=== PATIENT | female | born 1975 | race Caucasian/White ===

== ENCOUNTER 2017-06-14 18:37 | Emergency (ER) | payer OTHER ==
[2017-06-14 20:47] VITALS: BP 114/61
[2017-06-14] MEDS ORDERED: Amoxicillin PO (*) 500 MG CAP PO ONE (21:04)
--- NOTE | 2017-06-14 21:07 | UC ---
Throat Pain/Nasal Tato HPI - HPI Summary HPI Summary: 41 yo female with moderate ST and GASPAR today son dxed with strep yesterday no n/v/d no cough or CP - History of Current Complaint Chief Complaint: UCGeneralIllness Stated Complaint: SORE THROAT,HEADACHE,CONGESTION Hx Obtained From: Patient Hx Last Menstrual Period: 01/2015 Onset/Duration: Gradual Onset, Lasting Days Severity: Mild Pain Intensity: 4 Pain Scale Used: 0-10 Numeric - Allergies/Home Medications Allergies/Adverse Reactions: Allergies Allergy/AdvReac Type Severity Reaction Status Date / Time MS Cefaclmiesha [From Ceclor] AdvReac Intermediate GI Upset Verified 06/14/17 20:47 PMH/Surg Hx/FS Hx/Imm Hx Previously Healthy: Yes - Surgical History Surgical History: None - Family History Known Family History: Positive: None - Social History Alcohol Use: None Substance Use Type: None Smoking Status (MU): Former Smoker Length of Time of Smoking/Using Tobacco: 2 yrs Review of Systems Constitutional: Negative Skin: Negative Eyes: Negative ENT: Sore Throat Respiratory: Negative Cardiovascular: Negative Gastrointestinal: Negative Genitourinary: Negative Motor: Negative Neurovascular: Negative Musculoskeletal: Negative Neurological: Headache Psychological: Negative Is Patient Immunocompromised?: No All Other Systems Reviewed And Are Negative: Yes Physical Exam Triage Information Reviewed: Yes Appearance: Well-Appearing, No Pain Distress, Well-Nourished Vital Signs: Initial Vital Signs Temp 97.8 F 06/14/17 20:40 Pulse 65 06/14/17 20:40 Resp 16 06/14/17 20:40 BP 114/61 06/14/17 20:40 Pulse Ox 99 06/14/17 20:40 Vital Signs Reviewed: Yes Eyes: Positive: Conjunctiva Clear ENT: Positive: Hearing grossly normal, Pharyngeal erythema, Uvula midline. Negative: Nasal congestion, Nasal drainage, Tonsillar swelling, Tonsillar exudate, Trismus, Muffled voice, Hoarse voice, Sinus tenderness Neck: Positive: Supple, Enlarged Nodes @ - ant cervical Respiratory: Positive: Lungs clear, Normal breath sounds, No respiratory distress, No accessory muscle use Cardiovascular: Positive: RRR, No Murmur Bowel Sounds: Positive: Present Musculoskeletal Exam: Normal Neurological Exam: Normal Neurological: Positive: Alert Psychological Exam: Normal Skin Exam: Normal Throat Pain/Nasal Course/Dx - Course Course Of Treatment: strep (-) - Differential Dx/Diagnosis Provider Diagnoses: acute pharyngitis Discharge - Discharge Plan Condition: Stable Disposition: HOME Prescriptions: Amoxicillin PO (*) [Amoxicillin 875 MG (*)] 875 mg PO BID #20 tab Patient Education Materials: Pharyngitis (ED) Referrals: Brandi Sanchez MD [Primary Care Provider] - 3 Days (if not better)
== END 2017-06-14 21:16 | disposition home or self-care (01) ==
LOC: UCCORT 18:37
DX: J02.9 Acute pharyngitis, unspecified (principal); Z87.891 Personal history of nicotine dependence
CPT/HCPCS: 87651; 99212; A9270-GY; G0463

== ENCOUNTER 2017-06-18 10:47 | Emergency (ER) | payer OTHER ==
--- NOTE | 2017-06-18 11:17 | UC ---
UC Dental HPI - HPI Summary HPI Summary: seen 3 days ago with sore throat, son had strep a few weeks ago--strep was negative but rx with amoxicillin---is not better but now has erythema sores on tongue and roof of mouth - History of Current Complaint Chief Complaint: UCDentalProblem Stated Complaint: ORAL COMPLAINT Time Seen by Provider: 06/18/17 11:09 Hx Obtained From: Patient Hx Last Menstrual Period: 01/2015 ?: No Onset/Duration: Sudden Onset, Worse Since - today Severity: Moderate Aggravating Factor(s): Chewing Alleviating Factor(s): Nothing - Allergies/Home Medications Allergies/Adverse Reactions: Allergies Allergy/AdvReac Type Severity Reaction Status Date / Time cefaclor Allergy Vomiting Verified 06/18/17 11:19 PMH/Surg Hx/FS Hx/Imm Hx Previously Healthy: No - multiple herniated discs GI/ History: Gastroesophageal Reflux - Surgical History Surgical History: None - Family History Known Family History: Positive: None - Social History Occupation: Employed Part-time Lives: With Family Alcohol Use: None Substance Use Type: None Smoking Status (MU): Former Smoker Length of Time of Smoking/Using Tobacco: 2 yrs Review of Systems Constitutional: Fatigue Skin: Other - tender erythemic sores roof of mouth and tongue Eyes: Negative ENT: Negative Respiratory: Negative Cardiovascular: Negative Gastrointestinal: Negative Genitourinary: Negative Motor: Negative Neurovascular: Negative Musculoskeletal: Negative Neurological: Negative Psychological: Negative Is Patient Immunocompromised?: No All Other Systems Reviewed And Are Negative: Yes Physical Exam Triage Information Reviewed: Yes Appearance: Well-Appearing, No Pain Distress, Well-Nourished Vital Signs Reviewed: Yes Eye Exam: Normal Eyes: Positive: Conjunctiva Clear ENT Exam: Normal ENT: Positive: Normal ENT inspection, Hearing grossly normal, Pharyngeal erythema, TMs normal, Uvula midline. Negative: Nasal congestion, Tonsillar swelling, Tonsillar exudate, Trismus, Muffled voice, Hoarse voice, Dental tenderness, Sinus tenderness Dental Exam: Normal Neck exam: Normal Neck: Positive: Supple, Nontender, No Lymphadenopathy Respiratory Exam: Normal Respiratory: Positive: No respiratory distress, No accessory muscle use Cardiovascular Exam: Normal Cardiovascular: Positive: Pulses Normal, Brisk Capillary Refill Musculoskeletal Exam: Normal Neurological Exam: Normal Neurological: Positive: Alert, Muscle Tone Normal, Fatigued Psychological Exam: Normal Skin: Positive: Other - on tongue and hard palate as noted Dental Complaint Course/Dx - Course Course Of Treatment: magic mouth wash, stop amoxicillin, tylenol, ibuprofen for pain follow with pcp - Differential Dx/Diagnosis Provider Diagnoses: viral stomatitis Discharge - Discharge Plan Condition: Stable Disposition: HOME Prescriptions: Magic Mouth Was-PRISCA/MAAL/LIDO* 5 ml SWISH SPIT QID #120 ml Patient Education Materials: Ibuprofen (By mouth), Gingivostomatitis (ED) Referrals: Brandi Sanchez MD [Primary Care Provider] - 1 Week
[2017-06-18 11:19] VITALS: BP 141/66
== END 2017-06-18 11:33 | disposition home or self-care (01) ==
LOC: UCCORT 10:47
DX: K12.1 Other forms of stomatitis (principal); B34.8 Other viral infections of unspecified site; Z88.1 Allergy status to other antibiotic agents; Z87.891 Personal history of nicotine dependence
CPT/HCPCS: 99212; G0463

== ENCOUNTER 2017-08-25 17:56 | Emergency (ER) | payer OTHER ==
[2017-08-25 18:17] VITALS: BP 144/77
--- NOTE | 2017-08-25 18:39 | UC ---
Dizzy HPI HPI Summary: 41 yo female flew to [place] about 10 days ago After flight developed mild intermittent vertigo/right otalgia and nausea with mild headache Has had these symptoms in past with flights She flew back to [place] on 08/21. Since then she has had intermittent severe HAs which travel from occiput to frontal she has had severe nausea no vomiting she has had trouble focusing and sees halos around objects she has had vertigo which is worse with change of positions she has experience disequilibrium as well with a sensation of being on a rocking boat she has marked right ear pain now no ringing or roaring in her ears seen by PMD yesterday and started on zofran/meclizine/as well as ciprodex ear drops took a nap around noon woke at three and vertigo was the worse she has experienced - History Of Current Complaint Chief Complaint: UCGeneralIllness Stated Complaint: WORSENING VERTIGO Time Seen by Provider: 08/25/17 18:20 Hx Obtained From: Patient Hx Last Menstrual Period: 08/16/17 Onset/Duration: Sudden Onset, Still Present Timing: Constant - initially intermittent and mild/now constant and severe Severity Initially: Mild Severity Currently: Severe Pain Intensity: 8 Pain Scale Used: 0-10 Numeric Character: Room Spinning, Dizzy Aggravating Factor(s): Position Change, Supine To Erect, Change In Head Position Alleviating Factor(s): Rest, Closing Eyes Associated Signs And Symptoms: Positive: Nausea, Visual Changes, Decreased Oral Intake. Negative: Vomiting, Diaphoresis, Tinnitus, Chest Pain, SOB, Palpitations, Change In Diet - Allergies/Home Medications Allergies/Adverse Reactions: Allergies Allergy/AdvReac Type Severity Reaction Status Date / Time cefaclor Allergy Vomiting Verified 06/18/17 11:19 Home Medications: Home Medications Ciproflox/Dexameth OTIC.SUSP* [Ciprodex OTIC.SUSP*] 1 drop .SEE ORDER DAILY 12/05 [History Confirmed 08/25/17] Meclizine TAB* [Antivert 12.5 TAB*] 12.5 mg PO TID 08/25/17 [History Confirmed 08/25/17] Ondansetron TAB* [Zofran 4 MG Tab*] 4 mg PO Q6H PRN 08/25/17 [History Confirmed 08/25/17] metFORMIN* [Glucophage 500 MG TAB *] 500 mg PO BID 08/25/17 [History Confirmed 08/25/17] PMH/Surg Hx/FS Hx/Imm Hx Previously Healthy: Yes Respiratory History: Asthma GI/ History: Gastroesophageal Reflux Psychological History: Anxiety - Surgical History Surgical History: None - Family History Known Family History: Positive: None - Social History Alcohol Use: None Substance Use Type: None Smoking Status (MU): Former Smoker Length of Time of Smoking/Using Tobacco: 2 yrs Review of Systems Constitutional: Negative Skin: Negative Eyes: Blurred Vision ENT: Negative Respiratory: Negative Cardiovascular: Negative Gastrointestinal: Nausea Genitourinary: Negative Motor: Negative Neurovascular: Negative Musculoskeletal: Negative Neurological: Headache Psychological: Negative Is Patient Immunocompromised?: No All Other Systems Reviewed And Are Negative: Yes Physical Exam Triage Information Reviewed: Yes Appearance: Well-Appearing, No Pain Distress, Well-Nourished Vital Signs: Initial Vital Signs Temp 98.9 F 08/25/17 18:11 Pulse 78 08/25/17 18:11 Resp 16 08/25/17 18:11 BP 144/77 08/25/17 18:11 Pulse Ox 100 08/25/17 18:11 Vital Signs Reviewed: Yes Eyes: Positive: Conjunctiva Clear, Other: - EOMI/PERRL/fundi benign ENT: Positive: Hearing grossly normal, Pharynx normal, TMs normal, Uvula midline , Other - right tragal tenderness but EAC does not appeat swollen. Negative: Nasal congestion, Nasal drainage, TM bulging, TM dull, TM red, Tonsillar swelling, Tonsillar exudate, Trismus, Muffled voice, Hoarse voice, Dental tenderness Neck: Positive: Supple, Nontender, No Lymphadenopathy, Other: - no bruits Respiratory: Positive: Lungs clear, Normal breath sounds, No respiratory distress, No accessory muscle use Cardiovascular: Positive: RRR, No Murmur. Negative: Tachycardia Musculoskeletal: Positive: Strength Intact, ROM Intact, No Edema Neurological: Positive: Alert, Other: - GCS 15/15, CN2-12 intact, strength 5/5, DTRs brisk and symmetrical, no dysarthria or aphasia, no pronator drift, gait slow and a bit wide based Psychological Exam: Normal Skin Exam: Normal Diagnostics - Radiology No standard instances Xray Interpretation: No Acute Changes - CT brain Radiology Interpretation Completed By: Radiologist Re-Evaluation - Re-Evaluation First Eval Re-Evaluation Time: 19:36 Change: Improved Dizzy Course/Dx - Course Course Of Treatment: I offerred IV fluids and IV lorazepam. Pt declines. She feels better knowing that her CT is normal and thinks anxiety caused some of her symptoms - Differential Dx/Diagnosis Provider Diagnoses: positional vertigo Discharge - Sign-Out/Discharge Documenting (check all that apply): Discharge/Admit/Transfer - Discharge Plan Condition: Stable Disposition: HOME Patient Education Materials: Vertigo (ED) Referrals: Brandi Sanchez MD [Primary Care Provider] - As Soon As Possible (recheck this week) Additional Instructions: continue current treatment recheck for new or worsening symptoms continue to not risk driving until you are better
--- NOTE | 2017-08-25 19:25 | RAD ---
Indication: Headache and vertigo. Comparison: No relevant prior exams available on the [facility] for [place]. Technique: Noncontrast CT vertex of skull through foramen magnum. Report: The sulci, ventricles, and basal cisterns are normal for age. Alas matter white matter differentiation is preserved without evidence for edema. No intra or extra axial hemorrhage, mass, or fluid collection detected. Unremarkable visualized orbital contents. Unremarkable calvarium and skull base. Unremarkable scalp. The visualized paranasal sinuses and mastoid air spaces are clear. IMPRESSION: Negative unenhanced head CT.
== END 2017-08-25 19:39 | disposition home or self-care (01) ==
LOC: UCCORT 17:56
DX: H81.10 Benign paroxysmal vertigo, unspecified ear (principal); Z87.891 Personal history of nicotine dependence; Z88.3 Allergy status to other anti-infective agents
CPT/HCPCS: 70450; 99211; G0463

== ENCOUNTER 2018-07-11 07:29 | Emergency (ER) | payer OTHER ==
--- OUTSIDE RECORDS SUMMARY | 2018-07-11 07:39 | XMS REPORT | Continuity of Care Document ---
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 [phone] Rheumatoid Factor Screen < 10.0 IU/mL N 0.0-15.0 Magnesium 2.3 mg/dL N 1.8-2.4 Thyroid Stim Hormone 2.06 uIU/mL N 0.30-4.20 PCOS 02/11/2011 [facility] Prolactin 7.4 ng/mL 3.24-29.12 [address] [place] [address] [phone] Insulin 75.4 uIU/mL High 2.6-24.9 55 Thyroid Stim Hormone 0.76 uIU/mL 0.49-4.67 Free T4 0.93 ng/dL 0.71-1.85 Testosterone,Serum 50 ng/dL High 8-48 56 Dehydroepiandrosterone Sulfate 143.7 g/dL 60.9-337.0 2 Hour GTT See Note mg/dL 57 HCG, Quant < 1.0 mIU/mL 58 Hydroxyprogesterone,17-Alpha 57 ng/dL . 59 LDL Cholesterol 02/11/2011 [facility] Cholesterol 166 mg/dL 120-200 Profile [address] [place] [address] [phone] Triglycerides 75 mg/dL 16-231 HDL Cholesterol 46 mg/dL 29-83 LDL-Cholesterol 105 mg/dL 62-185 Testosterone,Free/Weakly 02/11/2011 [facility] Testosterone,%Free/Weakly 8.0 3.0-18.[address] BND % [place] [address] [phone] Testosterone,Free+Weakly Bound 4.0 ng/dL 0.0-9.5 60 LDL Cholesterol 04/22/2010 [facility] Cholesterol 164 mg/dL 120-[address] [place], [place] [id number] [phone] Triglycerides 151 mg/dL 0-210 HDL Cholesterol 43 mg/dL 32-96 LDL-Cholesterol 91 mg/dL 62-185 Testosterone,Free/Weakly 04/22/2010 [facility] Testosterone,%Free/Weakly 8.6 3.0-18.[address] % [place], [place] [id number] [phone] Testosterone,Free+Weakly Bound 4.1 ng/dL 0.0-9.5 61 PCOS 04/22/2010 [facility] Prolactin 52.1 ng/mL High 3.24-29.[address] [place], [place] [id number] [phone] Insulin 17.4 uIU/mL 0.0-24.9 63 Thyroid Stim Hormone 2.65 uIU/mL 0.49-4.67 64 Free T4 1.00 ng/dL 0.71-1.85 65 Testosterone,Serum 48 ng/dL 8-48 66 Dehydroepiandrosterone Sulfate 170.3 g/dL 60.9-337.0 67 2 Hour GTT See Note mg/dL 68 HCG, Quant < 1.0 mIU/mL 69 Hydroxyprogesterone,17-Alpha 85 ng/dL . 70 Laboratory test 02/08/2010 [facility] ThinPrep Pap: See Note [address] [place] [address] [phone] 1 R73.9, E66.09, H81.10, E55.9 2 Elevated levels of HbA1c suggest the need for more aggressive treatment of glycemia. The [place] [employer] recommends that a primary goal of therapy should be a HbA1c of <7% and that physicians should re-evaluate the treatment regimen in patients with HbA1c values consistently >8%. 3 Note: Persistent reduction for 3 months or more in an eGFR <60 mL/min/1.73 m2 defines CKD. Patients with eGFR values >/=60 mL/min/1.73 m2 may also have CKD if evidence of persistent proteinuria is present. The original MDRD equation for estimated GFR is not valid for patients less than 18 years of age. Additional information may be found at www.kdoqi.org. 4 Vitamin D deficiency has been defined by the [employer] and an Endocrine Society practice guideline as a level of serum 25-OH vitamin D less than 20 ng/mL (1,2). The Endocrine Society went on to further define vitamin D insufficiency as a level between 21 and 29 ng/mL (2). 1. IOM ([employer] of [employer]). 2010. Dietary reference intakes for calcium and D. [place]: The National Academies Press. 2. Zeynep MF, Isabella SHAY, Amarilis GASPAR, et al. Evaluation, treatment, and prevention of vitamin D deficiency: an Endocrine Society clinical practice guideline. JCEM. 2010; 96(7):1911-30. Performed at: RN - [facility] [address] [id number] Quality Lab Technician: Shannan Bustillos MD, Phone: [phone] 5 Reference Guidelines*: Desirable: ........... < 200 mg/dL Borderline High: ..... 200-239 mg/dL High: ................ >=240 mg/dL * The National Cholesterol Education Program (NCEP) 6 Reference Guidelines*: Normal: ............. < 150 mg/dL Borderline High: .... 150-199 mg/dL High: ............... 200-499 mg/dL Very High: .......... > 500 mg/dL * Source: National Cholesterol Education Program (NCEP) 7 Reference Guidelines*: Low HDL: ..... < 40 mg/dL Normal: ..... 40-60 mg/dL Desirable: ... > 60 mg/dL *The National Cholesterol Education Program(NCEP) 8 Reference Guidelines*: Optimal:........... <100 mg/dL Near Optimal....... 100-129 mg/dL Borderline High.... 130-159 mg/dL High............... 160-189 mg/dL Very High.......... >=190 mg/dL * Source: National Cholesterol Education Program (NCEP) 9 L02.411 10 NO METHICILLIN RESISTANT STAPHYLOCOCCUS AUREUS ISOLATED. 11 FEW EPITHELIAL CELLS 12 NO WHITE BLOOD CELLS 13 RARE GRAM POSITIVE COCCI 14 RARE GRAM POS BACILLI SUGGESTIVE OF CORYNEBACTERIA 15 NO PATHOGENS ISOLATED 16 K76.0 R73.9 E66.09 17 Note: Persistent reduction for 3 months or more in an eGFR <60 mL/min/1.73 m2 defines CKD. Patients with eGFR values >/=60 mL/min/1.73 m2 may also have CKD if evidence of persistent proteinuria is present. The original MDRD equation for estimated GFR is not valid for patients less than 18 years of age. Additional information may be found at www.kdoqi.org. 18 Values below the stated reference ranges of AST and ALT can be seen in normal populations. Clinical correlation is suggested. 19 Elevated levels of HbA1c suggest the need for more aggressive treatment of glycemia. The [place] [employer] recommends that a primary goal of therapy should be a HbA1c of <7% and that physicians should re-evaluate the treatment regimen in patients with HbA1c values consistently >8%. 20 Reference Guidelines*: Desirable: ........... < 200 mg/dL Borderline High: ..... 200-239 mg/dL High: ................ >=240 mg/dL * The National Cholesterol Education Program (NCEP) 21 Reference Guidelines*: Normal: ............. < 150 mg/dL Borderline High: .... 150-199 mg/dL High: ............... 200-499 mg/dL Very High: .......... > 500 mg/dL * Source: National Cholesterol Education Program (NCEP) 22 Reference Guidelines*: Low HDL: ..... < 40 mg/dL Normal: ..... 40-60 mg/dL Desirable: ... > 60 mg/dL *The National Cholesterol Education Program(NCEP) 23 Reference Guidelines*: Optimal:........... <100 mg/dL Near Optimal....... 100-129 mg/dL Borderline High.... 130-159 mg/dL High............... 160-189 mg/dL Very High.......... >=190 mg/dL * Source: National Cholesterol Education Program (NCEP) 24 R53.82 25 Negative <36.0 Equivocal 36.0 - 43.9 Positive >43.9 26 Negative < 9.0 Equivocal 9.0 - 10.9 Positive >10.9 27 Negative <18.0 Equivocal 18.0 - 21.9 Positive >21.9 28 Negative <18.0 Equivocal 18.0 - 21.9 Positive >21.9 29 EBV Interpretation Chart Interpretation EBV-IgM EA(D)-IgG VCA-IgG EBNA-IgG EBV Seronegative - - - - Early Phase + - - - Acute Primary + +or- + - Infection Convalescence/Past - +or- + + Infection Reactivated +or- + + + Infection + Antibody Present - Antibody Absent Performed at: - [facility] [id number] Quality Lab Technician: Shannan Bustillos MD, Phone: [phone] 30 R73.9 K76.0 E66.09 M54.5 R53.82 M51.86 K21.9 G44.209 M62.830 31 Vitamin D deficiency has been defined by the [employer] and an Endocrine Society practice guideline as a level of serum 25-OH vitamin D less than 20 ng/mL (1,2). The Endocrine Society went on to further define vitamin D insufficiency as a level between 21 and 29 ng/mL (2). 1. IOM ([employer] of [employer]). 2010. Dietary reference intakes for calcium and D. [place]: The National Academies Press. 2. Zeynep OCASIO, Isabella SHAY, Amarilis GASPAR, et al. Evaluation, treatment, and prevention of vitamin D deficiency: an Endocrine Society clinical practice guideline. JCEM. 2010; 96(7):1911-30. Performed at: [facility] [address] [id number] Quality Lab Technician: Shannan Bustillos MD, Phone: [phone] 32 Reference Guidelines*: Desirable: ........... < 200 mg/dL Borderline High: ..... 200-239 mg/dL High: ................ >=240 mg/dL * The National Cholesterol Education Program (NCEP) 33 Reference Guidelines*: Normal: ............. < 150 mg/dL Borderline High: .... 150-199 mg/dL High: ............... 200-499 mg/dL Very High: .......... > 500 mg/dL * Source: National Cholesterol Education Program (NCEP) 34 Reference Guidelines*: Low HDL: ..... < 40 mg/dL Normal: ..... 40-60 mg/dL Desirable: ... > 60 mg/dL *The National Cholesterol Education Program(NCEP) 35 Reference Guidelines*: Optimal:........... <100 mg/dL Near Optimal....... 100-129 mg/dL Borderline High.... 130-159 mg/dL High............... 160-189 mg/dL Very High.......... >=190 mg/dL * Source: National Cholesterol Education Program (NCEP) 36 Note: Persistent reduction for 3 months or more in an eGFR <60 mL/min/1.73 m2 defines CKD. Patients with eGFR values >/=60 mL/min/1.73 m2 may also have CKD if evidence of persistent proteinuria is present. The original MDRD equation for estimated GFR is not valid for patients less than 18 years of age. Additional information may be found at www.kdoqi.org. 37 Elevated levels of HbA1c suggest the need for more aggressive treatment of glycemia. The [place] [employer] recommends that a primary goal of therapy should be a HbA1c of <7% and that physicians should re-evaluate the treatment regimen in patients with HbA1c values consistently >8%. 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 Patients with eGFR values >/=60 mL/min/1.73 m2 may also have CKD if evidence of persistent proteinuria is present. The original MDRD equation for estimated GFR is not valid for patients less than 18 years of age. Additional information may be found at www.kdoqi.org. 41 Values below the stated reference ranges of AST and ALT can be seen in normal populations. Clinical correlation is suggested. 42 Elevated levels of HbA1c suggest the need for more aggressive treatment of glycemia. The [place] [employer] recommends that a primary goal of therapy should be a HbA1c of <7% and that physicians should re-evaluate the treatment regimen in patients with HbA1c values consistently >8%. 43 Reference Guidelines*: Desirable: ........... < 200 mg/dL Borderline High: ..... 200-239 mg/dL High: ................ >=240 mg/dL * The National Cholesterol Education Program (NCEP) 44 Reference Guidelines*: Normal: ............. < 150 mg/dL Borderline High: .... 150-199 mg/dL High: ............... 200-499 mg/dL Very High: .......... > 500 mg/dL * Source: National Cholesterol Education Program (NCEP) 45 Reference Guidelines*: Low HDL: ..... < 40 mg/dL Normal: ..... 40-60 mg/dL Desirable: ... > 60 mg/dL *The National Cholesterol Education Program(NCEP) 46 Reference Guidelines*: Optimal:........... <100 mg/dL Near Optimal....... 100-129 mg/dL Borderline High.... 130-159 mg/dL High............... 160-189 mg/dL Very High.......... >=190 mg/dL * Source: National Cholesterol Education Program (NCEP) 47 K21.9 R10.13 48 Note: Persistent reduction for 3 months or more in an eGFR <60 mL/min/1.73 m2 defines CKD. Patients with eGFR values >/=60 mL/min/1.73 m2 may also have CKD if evidence of persistent proteinuria is present. The original MDRD equation for estimated GFR is not valid for patients less than 18 years of age. Additional information may be found at www.kdoqi.org. 49 Values below the stated reference ranges of AST and ALT can be seen in normal populations. Clinical correlation is suggested. 50 R54.32 51 Performed at: RN - [facility] [address] [id number] Quality Lab Technician: Shannan Bustillos MD, Phone: [phone] 52 Note: Persistent reduction for 3 months or more in an eGFR <60 mL/min/1.73 m2 defines CKD. Patients with eGFR values >/=60 mL/min/1.73 m2 may also have CKD if evidence of persistent proteinuria is present. The original MDRD equation for estimated GFR is not valid for patients less than 18 years of age. Additional information may be found at www.kdoqi.org. 53 Values below the stated reference ranges of AST and ALT can be seen in normal populations. Clinical correlation is suggested. 54 Elevated levels of HbA1c suggest the need for more aggressive treatment of glycemia. The [place] [employer] recommends that a primary goal of therapy should be a HbA1c of <7% and that physicians should re-evaluate the treatment regimen in patients with HbA1c values consistently >8%. 55 Please note reference interval change 56 Please note reference interval change 57 Glucose, Fast 90 mg/dL 1/2 Hr Glucose 170 mg/dL 1 Hr Glucose 151 (H) mg/dL 2 Hr Glucose 133 ng/dL FAST URINE GLU NEGATIVE % FAST URINE KET NEGATIVE 1/2HR URINE GLU NEGATIVE % 1/2HR URINE KET NEGATIVE 1HR URINE GLU NEGATIVE % 1HR URINE KET NEGATIVE 2HR URINE GLU NEGATIVE % 2HR URINE KET NEGATIVE 58 Approximate Gestational Age and Total BHCG Range: 0.2 - 1 Week........................5-50 mIU/mL 1 - 2 Weeks.....................50-500 mIU/mL 2 - 3 Weeks..................100-5,000 mIU/mL 3 - 4 Weeks.................500-10,000 mIU/mL 4 - 5 Weeks...............1,000-50,000 mIU/mL 5 - 6 Weeks.............10,000-100,000 mIU/mL 6 - 8 Weeks.............15,000-200,000 mIU/mL 2 - 3 Months............10,000-100,000 mIU/mL 59 Adult Female Follicular 15 - 70 Luteal 35 - 290 60 Performed at: [address] [id number] Quality Lab Technician: Ahmet Shelley MD, Phone: [phone] Performed at: [address] [id number] Quality Lab Technician: Ellis Vora MD, Phone: [phone] 61 Performed at: [address] [id number] Quality Lab Technician: Ahmet Shelley MD, Phone: [phone] Performed at: [address] [id number] Quality Lab Technician: Ellis Vora MD, Phone: [phone] 62 QUERY: @[facility] Pat ID: [id number] QUERY: @[facility]R Req #: [id number] [phone] Performed at: [address] [id number] Quality Lab Technician: Ahmet Shelley MD, Phone: [phone] Performed at: [address] [id number] Quality Lab Technician: Ellis Vora MD, Phone: [phone] QUERY: @[facility] Pat ID: [id number] QUERY: @EMR Req #: [phone] [phone] QUERY: @[facility] Pat ID: [id number] QUERY: @[facility]R Req #: [phone] 66 [facility] now offers an enhanced accuracy testosterone test specifically designed for lower testosterone levels (test #848882; Testosterone, Total, Women, Children and Hypogonadal Males, LC/MS-MS). CDC and several academic societies recommend improved testosterone tests for women, children, and hypogonadal males and should be performed using test #084236. 67 QUERY: @[facility] ID: [id number] QUERY: @[facility] Req #: [id number] 68 FASTING GLUCOSE 101 mg/dL 1/2 HR GLUCOSE 175 mg/dL 1 HR GLUCOSE 197 (*H) mg/dL 2 HR GLUCOSE 103 mg/dL FAST URINE GLU NEGATIVE % FAST URINE KET NEGATIVE 1/2HR URINE GLU NEGATIVE % 1/2HR URINE KET NEGATIVE 1HR URINE GLU 1/2 (H) % 1HR URINE KET NEGATIVE 2HR URINE GLU 1/4 (H) % 2HR URINE KET NEGATIVE 69 APPROXIMATE GESTATIONAL AGE AND BHCG RANGE 0-1 WEEK.......................1-50 mIU/mL 1-2 WEEKS....................40-300 mIU/mL 2-3 WEEKS.................100-1,000 mIU/mL 3-4 WEEKS.................500-6,000 mIU/mL 1-2 MONTHS............5,000-200,000 mIU/mL 2-3 MONTHS...........10,000-100,000 mIU/mL 2nd TRIMESTER..........3,000-50,000 mIU/mL 3rd TRIMESTER..........1,000-50,000 mIU/mL 70 Female Follicular 30 - 100 Luteal 20 - 290 40 -1540 71 PAP: FINAL REPORT SPECIMEN ADEQUACY: SPECIMEN SATISFACTORY FOR INTERPRETATION INTERPRETATION: NEGATIVE FOR INTRAEPITHELIAL LESION OR MALIGNANCY COMMENT: THINPREP PREPARED PAP SLIDE # Prepared in the Cytology laboratory from the ThinPrep sample is 1 ThinPrep smear. 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 Post ? Menopause? LMP date: 10/2009 Last Pap: at [facility]? Abnormal Pap? Y If Yes, date: 2004 If patient had related surgical procedure: Related Therapy: Significant Clinical History: 256.4 V72.31 DISCLAIMER: The Pap smear is a screening test and not a diagnostic procedure. False negative and false positive results can and do occur for a number of reasons. Regular screening provides an aid in detecting treatable cervical abnormalities, but should not be used as the only means for detecting cervical dysplasia and carcinoma. MODESTO Zimmer [birth year] Procedures Date Code Description Status 12/19/2017 [id number] Mammogram Completed 03/18/2017 [id number] Esophageal Motility Study Completed 10/22/2016 [id number] EGD With Biopsy Completed 11/30/2014 [id number] Mammogram Completed Encounters Type Date Location Provider Dx Diagnosis Office Visit 03/16/2018 Primary Care Brandi Sanchez MD R73.9 Hyperglycemia , 2:40p Office unspecified E66.09 Other obesity due to excess calories J32.9 Chronic sinusitis, unspecified E28.2 Polycystic ovarian syndrome L02.411 Cutaneous abscess of right axilla Office Visit 02/03/2018 11:45a Primary Care Anthony, J32.9 Chronic sinusitis, Office ALEKSANDRA Amaral unspecified R06.2 Wheezing Office Visit 01/20/2018 3:00p [facility] Anthony J01.90 Acute sinusitis, Office ALEKSANDRA Amaral unspecified H65.01 Acute serous otitis media, right ear Office Visit 11/11/2017 2:20p Primary [facility] Brandi Sanchez, H81.10 Benign paroxysmal Office MD vertigo, unspecified ear R73.9 Hyperglycemia, unspecified E66.09 Other obesity due to excess calories K76.0 Fatty (change of) liver, not elsewhere classified M54.2 Cervicalgia R51 Headache Office Visit 09/03/2017 11:00a [facility] Brandi Sanchez, J01.90 Acute sinusitis, Office MD unspecified H81.10 Benign paroxysmal vertigo, unspecified ear R51 Headache F41.9 Anxiety disorder, unspecified Office Visit 08/24/2017 2:00p Primary Care Brandi Sanchez, H92.02 Otalgia , left Office MD ear H81.10 Benign paroxysmal vertigo, unspecified ear Office Visit 08/11/2017 1:30p Primary [facility] Brandi Sanchez, R73.9 Hyperglycemia, Office MD unspecified E66.09 Other obesity due to excess calories M62.830 Muscle spasm of back Office Visit 07/03/2017 3:00p Primary Care Brandi Sanchez, K76.0 Fatty ( change of) Office MD liver, not elsewhere classified R53.82 Chronic fatigue, unspecified M51.86 Other intervertebral disc disorders, lumbar region E55.9 Vitamin D deficiency, unspecified R73.9 Hyperglycemia, unspecified Office Visit 12/10/2016 1:00p Primary Care Brandi Sanchez, K76.0 Fatty ( change of) Office MD liver, not elsewhere classified K21.9 Gastro-esophageal reflux disease without esophagitis E66.09 Other obesity due to excess calories R10.13 Epigastric pain Office Visit 12/02/2016 3:30p GI Venkata Brown MD K21.9 Gastro- esophageal reflux disease without esophagitis K76.0 Fatty (change of) liver, not elsewhere classified R10.13 Epigastric pain Office Visit 11/24/2016 9:20a Primary Care Daniel K21.9 Gastro- esophageal Office MD Brandi reflux disease without esophagitis E66.09 Other obesity due to excess calories K76.0 Fatty (change of) liver, not elsewhere classified R73.9 Hyperglycemia, unspecified Office Visit 10/07/2016 GI Venkata Brown, K21.9 Gastro-esophageal 1:30p reflux disease without esophagitis Office Visit 09/30/2016 Primary Care Brandi Sanchez, K21.9 Gastro- esophageal 9:40a Office MD reflux disease without esophagitis R19.4 Change in bowel habit R10.13 Epigastric pain Office Visit 09/09/2016 10:20a Primary [facility] Brandi Sanchez, M62.830 Muscle spasm of Office MD back Office Visit 09/04/2016 1:00p Primary Care Walter Mar, J01.90 Acute sinusitis, Office M.D. 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 Office Visit 02/08/2010 2:00p statistical assistant Office Patrice Chen, 256.4 Polycystic Ovaries M.D. 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 SH and FH reviewed. Meds Reviewed.up to date on preventative screenings and agppgdqdE76.9 Hyperglycemia, unspecifiedNew Labs:Comprehensive Metabolic Panel, Scheduled: Glycohemoglobin A1c, Scheduled: 12/21/18CBC W/Automated Diff, Scheduled: 12/21Comments:-hgbA1c 6.4%->5.8%->6.3%->5.5-Continue to exercise and lose weight a-Has been eating freshfruits and vegetables; cut down on soda- repeat blood work in 6 months and f/u 1 week after to discuss -metformin has helped with blood sugar and weight loss in the past; stable on this and also good option for hyperglycemia and fatty gqpxfO83.0 Fatty (change of) liver, not elsewhere classifiedNew Labs:Comprehensive Metabolic Panel, Scheduled: LDL Cholesterol Profile, Scheduled: 12/21/18Glycohemoglobin A1c, Scheduled: CBC W/Automated Diff, Scheduled: 12/21/18Comments:-extensive discussion on lifestyle changes-Healthy diet, more fresh food, weight loss-LFTs okay- Continue metformin as it has shown to help in fatty liver and hyperglycemia - continue to Check CMP and prjU1tD11.9 Chronic sinusitis, unspecifiedComments:- Has had sinus surgery with Dr. Escobedo in March of 2018 -Has healed well and sx much [id number] Vitamin D deficiency, unspecifiedNew Labs:Vitamin D,25- Hydroxy, Scheduled: 12/21/18Comments:-Vitamin D 50,000 units once weekly x 12 weeksthen switch to OTC vit D3 2000 units daily-check before next [id number] Encounter for immunizationComments:-flu vaccine givenAllNew Medication: Ergocalciferol 64026 Unit - 1 cap by mouth every week for 12 weeksFollow up:- fasting blood work before next visit -f/u in 6 months
[2018-07-11 07:44] VITALS: BP 144/72
--- NOTE | 2018-07-11 08:10 | UC ---
Neck Pain HPI - HPI Summary HPI Summary: She has a long history of low back and neck pain with MRIs showing multiple herniated discs. She is followed by [facility] and Dr. Garibay. Prior injections have helped. This episode started about a week ago and was exacerbated by throwing a ball. The pain radiates to the right shoulder and down into right hand. Right fingers numb in lateral aspect. No saddle anesthesia or incontinence. - History of Current Complaint Chief Complaint: UCGeneralIllness Stated Complaint: NECK PAIN x2 DAYS Time Seen by Provider: 07/11/18 07:50 Hx Obtained From: Patient Hx Last Menstrual Period: 06/25/18 ?: No Timing: Constant Onset/Duration: Gradual Onset, Lasting Days Severity: Severe Pain Intensity: 10 Location: Discrete At: Character: Aching, Stiff, Burning Aggravating Factors: Movement Alleviating Factors: Nothing Associated Signs & Symptoms: Positive: Paresthesia. Negative: Swelling, Redness , Bruising, Fever, Nuchal Rigity, Weakness, Headache - Risk Factors Meningitis Risk Factors: Negative - Allergies/Home Medications Allergies/Adverse Reactions: Allergies Allergy/AdvReac Type Severity Reaction Status Date / Time cefaclor Allergy Vomiting Verified 07/11/18 07:44 PMH/Surg Hx/FS Hx/Imm Hx Previously Healthy: No - prior disc disease. - Surgical History Surgical History: Yes - spine injections. - Family History Known Family History: Positive: None - Social History Lives: With Family Alcohol Use: None Substance Use Type: None Smoking Status (MU): Former Smoker Length of Time of Smoking/Using Tobacco: 2 yrs Review of Systems All Other Systems Reviewed And Are Negative: Yes Musculoskeletal: Positive: Arthralgia, Decreased ROM, Myalgia Neurological: Positive: Paresthesia Physical Exam Triage Information Reviewed: Yes Appearance: Well-Appearing, No Pain Distress, Well-Nourished Vital Signs: Initial Vital Signs Temp 97.6 F 07/11/18 07:39 Pulse 61 07/11/18 07:39 Resp 18 07/11/18 07:39 BP 144/72 07/11/18 07:39 Pulse Ox 99 07/11/18 07:39 Vital Signs Reviewed: Yes Eye Exam: Normal Eyes: Positive: Conjunctiva Clear. Negative: Conjunctiva Inflamed ENT: Positive: Hearing grossly normal, Pharynx normal, Pharyngeal erythema. Negative: Nasal congestion, Nasal drainage Neck: Positive: Supple. Negative: Nuchal Rigidity Respiratory: Positive: Lungs clear, Normal breath sounds, No respiratory distress, No accessory muscle use. Negative: Respiratory distress, Decreased breath sounds, Accessory muscle use, Crackles, Rhonchi, Stridor Cardiovascular: Positive: No Murmur, Pulses Normal Abdomen Description: Positive: No Organomegaly, Soft. Negative: Distended, Guarding Musculoskeletal: Positive: ROM Limited @ - c spine. Spurling on the right equivocal. There is tenderness of the c spine and trapezius. Neurological Exam: Other - REflexes wayne symmetric and strength intact and symmetric of all movements of the hands. There is diminished pin prick in the right thenar emminence. Psychological: Positive: Age Appropriate Behavior Skin: Negative: Rashes Neck Pain Course/Dx - Differential Dx/Diagnosis Provider Diagnosis: Cervical radiculopathy at C5 Discharge - Sign-Out/Discharge Documenting (check all that apply): Patient Departure All imaging exams completed and their final reports reviewed: No Studies - Discharge Plan Condition: Fair Disposition: HOME Prescriptions: Dexamethasone TAB* [Decadron TAB*] 8 mg PO DAILY #6 tab oxyCODONE/Acetamin 10/325(NF) [Percocet 10/325 (NF)] 1 tab PO Q6HR PRN #20 tab MDD 4 PRN Reason: Pain Patient Education Materials: Cervical Radiculopathy (ED) Referrals: Brandi Sanchez MD [Primary Care Provider] - Additional Instructions: f/u with [facility] or Dr. Garibay. Do not take zanaflex and pain meds within 12 hours of eachother. - Billing Disposition and Condition Condition: FAIR Disposition: Home
== END 2018-07-11 08:10 | disposition home or self-care (01) ==
LOC: UCCORT 07:29
DX: M54.12 Radiculopathy, cervical region (principal); M54.5 Low back pain; Z88.1 Allergy status to other antibiotic agents; Z87.891 Personal history of nicotine dependence
CPT/HCPCS: 99212; G0463

== ENCOUNTER 2019-02-15 09:04 | Emergency (ER) | payer OTHER ==
--- OUTSIDE RECORDS SUMMARY | 2019-02-15 09:18 | XMS REPORT | Continuity of Care Document ---
:1975 External Reference #:[id number] Author Name Wilmer Choe MD Address [address] [place] [address] Care Team Providers Name Role Phone Venkata England MD - Endocrinology, Care Team Information Line Rep[facility] Brandi Sanchez MD - Internal Medicine Care Team Information Line Repairer Tower [facility] Physical Therapy/Alejandro Barfield Care Team Information Line Repairer Tower [phone] [facility] Care Team Information Line Repairer Tower [phone] - Physical Therapy Patrice Chen MD - Obstetrics & Care Team Information Line Repairer Tower [phone] Gynecology Problems Active Problems Provider Date Acute sinusitis Walter Mar M.D. Onset: 09/04/2016 Acute bronchitis Walter Mar M.D. Onset: 09/04/2016 Low back pain Walter Mra M.D. Onset: 09/04/2016 Gastroesophageal reflux disease Brandi Sanchez MD Onset: 11/24/2016 Obesity Brandi Sanchez MD Onset: 11/24/2016 Chronic nonalcoholic liver disease Brandi Sanchez MD Onset: 11/24/2016 Chronic fatigue syndrome Brandi Sanchez MD Onset: 07/03/2017 Disorder of lumbar disc Brandi Sanchez MD Onset: 07/03/2017 Vitamin D deficiency Brandi Sanchez MD Onset: 07/03/2017 Abnormal glucose level Brandi Sanchez MD Onset: 07/03/2017 C/O - a back symptom Brandi Sanchez MD Onset: 08/11/2017 Otalgia Brandi Sanchez MD Onset: 08/24/2017 Benign paroxysmal positional vertigo Brandi Sanchez MD Onset: 08/24/2017 Headache Brandi Sanchez MD Onset: 09/03/2017 Anxiety state Brandi Sanchez MD Onset: 09/03/2017 Neck pain Brandi Sanchez MD Onset: 11/11/2017 Chronic sinusitis Brandi Sanchez MD Onset: 03/16/2018 Polycystic ovaries Brandi Sanchez MD Onset: 03/16/2018 Polycystic ovary syndrome Tiffanie Yan, , HOSPITAL SECRETARY-C, Onset: 11/15/2018 CNM Moderate recurrent major depression Brandi Sanchez MD Onset: 12/08/2018 Social History Type Date Description Comments Sex Unknown Tobacco Use Start: Unknown End: Quit 1999 Unknown Tobacco Use Start: Unknown End: Former Cigarette Smoker X 6 YRS Unknown 1 Pack Daily Smoking Status Reviewed: 02/07/19 Former Cigarette Smoker X 6 YRS 1 Pack Daily Smokeless Tobacco Never Used Smokeless Tobacco ETOH Use Rarely consumes alcohol Recreational Drug Use Denies Drug Use Tobacco Use Start: Unknown End: Patient is a former smoker Recreational Drug Use Marijuana Former Enjoy Exercising Does not enjoy exercising Tattoo/Piercing Tattoo FOOT, ANKLE, NECK, & LEFT WRIST Tattoo/Piercing Pierced ears Allergies, Adverse Reactions, Alerts Active Allergies Reaction Severity Comments Date Dust 02/08/2010 Cefaclor Nausea And Vomiting 03/18/2017 Animals 02/08/2010 Hay fever 02/08/2010 Ceclor 04/25/2016 Amoxicillin rash 07/14/2017 Medications Active Medications SIG Qnty Indications Ordering Date Provider Ferrous Sulfate take one every day 30tabs Brandi Sanchez, 11/24/2018 325(65Fe) mg Tablets Vitamin D3 1 cap by mouth 100caps Brandi Sanchez, 10/28/2018 [id number] once a day. MD Capsules Fluoxetine HCL 1 tab by mouth 90tabs Brandi Sanchez, 10/28/2018 60mg every day MD Tablets Tizanidine HCL take one tablet by 90tabs Brandi Sanchez, 07/22/2018 4mg mouth every 8 MD Tablets hours as needed for muscle spasm / pain Hibiclens wash affected area 473ml Brandi Sanchez, 03/16/2018 4% Liquid of right axilla MD with hibiclens daily Misty Allergy 1 tab by mouth 90tabs Daniel, Brandi, 11/11/2017 180mg every day as MD Tablets needed Metformin HCL take one tablet by 180tabs Daniel, Brandi, 11/11/2017 500mg mouth twice a day MD Tablets Proair HFA take 2 puffs every 8.500gm Daniel Brandi, 6 hours as needed 108(90Base) mcg/Act for shortness of Aerosol breath. Omeprazole Take 1 Capsule By 90caps Daniel, Brandi, 40mg Mouth Every Day MD Capsules DR Topiramate take one tablet by Unknown 50mg mouth twice a day Tablets Aleve 2 by mouth every Unknown 220mg Capsules night if needed for pain Truecalm 1 capsule twice a Unknown day History Medications Gabapentin Take 1 Capsule 180Caps Tiffanie Yan, 08/24/2018 - 300mg By Mouth Twice A MS, HOSPITAL SECRETARY-C, CNM 10/28/2018 Capsules Day Immunizations CPT Code Status Date Vaccine Lot # [id number] Given 02/07/2019 Influenza Virus Vaccine, Quadrivalent, 36 Mos+, [id number] [id number] Given 06/23/2018 Influenza Virus Vaccine, Quadrivalent, 36 Mos+, [id number] .[id number] Given 02/14/2016 Influenza Virus Vaccine Split Virus Use For Individual 3Yr Older 12062 Given 09/30/2011 Tdap injection Vital Signs Date Vital Result Comment 02/07/2019 11:49am BP Systolic 122 mmHg BP Diastolic 70 mmHg Body Temperature 98.3 F Heart Rate 71 /min Respiratory Rate 18 /min Height 69 inches 5'9" Weight 241.38 lb BMI (Body Mass Index) 35.6 kg/m2 BSA (Body Surface Area) 2.24 m2 [place] body weight in kilograms 66 kg O2 % BldC Oximetry 98 % 01/14/2019 9:00am BP Systolic Sitting Left Arm 130 mmHg BP Diastolic Sitting Left Arm 68 mmHg Body Temperature 97.1 F Heart Rate 69 /min Respiratory Rate 20 /min Height 69 inches 5'9" Weight 232.00 lb BMI (Body Mass Index) 34.3 kg/m2 BSA (Body Surface Area) 2.20 m2 [place] body weight in kilograms 66 kg O2 % BldC Oximetry 99 % Results Test Date Facility Test Result H/L Range Note Comprehensive 01/13/2019 [facility] Glucose 78 mg/dL Normal 74-106 1 Metabolic Panel [address] [place] [address] [phone] BUN 15 mg/dL Normal 7-18 Creatinine 0.7 mg/dL Normal 0.6-1.3 Glom Filtration Rate, Estimate >60 mL/min >60 If >60 mL/min >60 2 BUN/Creat 21.4 ratio Sodium 142 mmol/L Normal 136-145 Potassium 3.8 mmol/L Normal 3.5-5.1 Chloride 107 mmol/L Normal 98-107 Carbon Dioxide 27 mmol/L Normal 21-32 Anion Gap 8 mEq/L Normal 8-16 Calcium 8.6 mg/dL Normal 8.5-10.1 Total Protein 7.3 g/dL Normal 6.4-8.2 Albumin 3.4 g/dL Normal 3.4-5.0 Globulin 3.9 g/dL Normal 1.9-4.3 Alb/Glob 0.9 ratio Bilirubin,Total 0.2 mg/dL Normal 0.2-1.0 Sgot/Ast 10 U/L Low 15-37 3 SGPT/Alt 24 U/L Normal 12-78 Alkaline Phosphatase 62 U/L Normal 45-117 Laboratory test 01/13/2019 [facility] Vitamin 27.5 Low 30.0-100.0 [address] D,25-Hydroxy ng/[place] [address] [phone] LDL Cholesterol 01/13/2019 [facility] Cholesterol 152 <200 [address] mg/[place] [address] [phone] Triglycerides 55 mg/dL <150 6 HDL Cholesterol 49 mg/dL >40 7 LDL-Cholesterol 92 mg/dL < 100 8 Glycohemoglobin 01/13/2019 [facility] Glycohemoglobin 5.6 % Normal 4.2-6.[address] (A1c) [place] [address] [phone] eAG 114 mg/dL CBC W/Automated 01/13/2019 [facility] White Blood 10.0 K/uL Normal 3.1-10.[address] Count [place], [place] [id number] [phone] Red Blood Count 4.61 M/uL Normal 3.90-5.40 Hemoglobin 11.3 gm/dL Low 11.6-15.8 Hematocrit 37.1 % Normal 36.0-46.1 Mean Cell Volume 80.5 fl Low 80.9-99.0 Mean Corpuscular HGB 24.5 pg Low 25.9-32.7 Mean Corpuscular HGB Conc 30.5 g/dL Low 30.8-34.3 Platelet Count 475 K/uL High 155-360 Red Cell Distri Width SD 52.6 fl High 36-47 Red Cell Distri Width %CV 18.2 % High 11.7-14.4 Mean Platelet Volume 10.3 fl Normal 8.9-12.4 Neut% 63.7 % Normal 40.4-72.8 Lymph % 29.6 % Normal 20.0-42.0 [place] % 4.9 % Normal 4.3-13.2 Eo% 0.9 % Normal 0.0-6.6 Bas% 0.4 % Normal 0.0-1.1 Immature Grans 0.5 % Normal 0.0-5.0 NRBC % 0.0 /100WBC < 10/ 100 WBC Neut# 6.36 K/uL Normal 1.8-7.0 Lymph # 2.96 K/uL Normal 1.0-4.0 [place] # 0.49 K/uL Normal 0.3-0.9 Eos # 0.09 K/uL Normal 0.0-0.5 Baso # 0.04 K/uL Normal 0.0-0.1 Immature Grans Absolute 0.05 K/uL NRBC # 0.00 K/uL Basic Metabolic Panel 11/15/2018 [facility] Glucose 89 mg/dL Normal 74-[address] [place], [place] [address] [phone] BUN 11 mg/dL Normal 7-18 Creatinine 0.7 mg/dL Normal 0.6-1.3 Glom Filtration Rate, Estimate >60 mL/min >60 If >60 mL/min >60 11 BUN/Creat 15.7 ratio Sodium 142 mmol/L Normal 136-145 Potassium 3.9 mmol/L Normal 3.5-5.1 Chloride 111 mmol/L High 98-107 Carbon Dioxide 23 mmol/L Normal 21-32 Anion Gap 8 mEq/L Normal 8-16 Calcium 8.9 mg/dL Normal 8.5-10.1 Protime 11/15/2018 [facility] Protime 13.5 seconds Normal 12.0-14.[address] [place] [address] [phone] Inr 1.0 Normal 0.9-1.1 12 CBC W/Automated 11/15/2018 [facility] White Blood 9.8 K/uL Normal 3.1-10.[address] Count [place], [place] [id number] [phone] Red Blood Count 4.46 M/uL Normal 3.90-5.40 Hemoglobin 11.0 gm/dL Low 11.6-15.8 Hematocrit 35.8 % Low 36.0-46.1 Mean Cell Volume 80.3 fl Low 80.9-99.0 Mean Corpuscular HGB 24.7 pg Low 25.9-32.7 Mean Corpuscular HGB Conc 30.7 g/dL Low 30.8-34.3 Platelet Count 424 K/uL High 155-360 Red Cell Distri Width SD 49.7 fl High 36-47 Red Cell Distri Width %CV 17.1 % High 11.7-14.4 Mean Platelet Volume 10.5 fl Normal 8.9-12.4 Neut% 65.9 % Normal 40.4-72.8 Lymph % 27.7 % Normal 20.0-42.0 [place] % 4.9 % Normal 4.3-13.2 Eo% 0.5 % Normal 0.0-6.6 Bas% 0.5 % Normal 0.0-1.1 Immature Grans 0.5 % Normal 0.0-5.0 NRBC % 0.0 /100WBC < 10/ 100 WBC Neut# 6.46 K/uL Normal 1.8-7.0 Lymph # 2.72 K/uL Normal 1.0-4.0 [place] # 0.48 K/uL Normal 0.3-0.9 Eos # 0.05 K/uL Normal 0.0-0.5 Baso # 0.05 K/uL Normal 0.0-0.1 Immature Grans Absolute 0.05 K/uL NRBC # 0.00 K/uL Ua RFX Micro & Culture 11/15/2018 [facility] Urine Color YELLOW Yellow II [address] [place], [place] [id number] [phone] Urine Clarity CLEAR Clear Urine Glucose - Dipstick NEGATIVE mg/dL Negative Urine Bilirubin - Dipstick NEGATIVE Negative Urine Ketone NEGATIVE mg/dL Negative Urine Specific [place] 1.015 Normal 1.010-1.030 Urine Blood NEGATIVE Negative Urine PH 7.0 Normal 6.5-7.5 Urine Protein - Dipstick NEGATIVE mg/dL Negative Urine Urobilinogen - Dipstick 0.2 E.U./dL Normal 0.2-1.0 Urine Nitrite - Dipstick NEGATIVE Negative Urine Leuk Esterase NEGATIVE Negative Source: URINE, CLEAN CAT <SEE NOTE> 13 Laboratory test 11/15/2018 [facility] Act Partial 25.9 Normal 23.4-35.[address] [place] [address] Time [phone] 1 R73.9 K76.0 E55.9 K76.0 E78.5 D64.9 2 Note: Persistent reduction for 3 months or more in an eGFR <60 mL/min/1.73 m2 defines CKD. Patients with eGFR values >/=60 mL/min/1.73 m2 may also have CKD if evidence of persistent proteinuria is present. The original MDRD equation for estimated GFR is not valid for patients less than 18 years of age. Additional information may be found at www.kdoqi.org. 3 Values below the stated reference ranges of AST and ALT can be seen in normal populations. Clinical correlation is suggested. 4 Vitamin D deficiency has been defined by the [place] of [employer] and an Endocrine Society practice guideline as a level of serum 25-OH vitamin D less than 20 ng/mL (1,2). The Endocrine Society went on to further define vitamin D insufficiency as a level between 21 and 29 ng/mL (2). 1. IOM ([place] of Medicine). 2010. Dietary reference intakes for calcium and D. [place]: The National Academies Press. 2. Zeynep MF, Isabella SHAY, Amarilis GASPAR, et al. Evaluation, treatment, and prevention of vitamin D deficiency: an Endocrine Society clinical practice guideline. JCEM. 2010; 96(7):1911-30. Performed at: RN - [facility] [address] [id number] Antenna Specialist: Shannan Bustillos MD, Phone: [phone] 5 Reference Guidelines*: Desirable: ........... < 200 mg/dL Borderline High: ..... 200-239 mg/dL High: ................ >= 240 mg/dL * The National Cholesterol Education Program [...] Source: National Cholesterol Education Program (NCEP) 9 Elevated levels of HbA1c suggest the need for more aggressive treatment of glycemia. The [place] Diabetes Association recommends that a primary goal of therapy should be a HbA1c of <7% and that physicians should re-evaluate the treatment regimen in patients with HbA1c values consistently >8%. 10 Z01.818 11 Note: Persistent reduction for 3 months or more in an eGFR <60 mL/min/1.73 m2 defines CKD. Patients with eGFR values >/=60 mL/min/1.73 m2 may also have CKD if evidence of persistent proteinuria is present. The original MDRD equation for estimated GFR is not valid for patients less than 18 years of age. Additional information may be found at www.kdoqi.org. 12 THERAPEUTIC INR RANGE: 2.0 - 3.0 DVT, Pulmonary embolus, prophylaxis against venous thrombosis or systemic embolization in high risk patients. 2.5 - 3.5 Mechanical heart valves 13 URINE, CLEAN CATCH Procedures Date Code Description Status 11/15/2018 43669 EKG-Tracing And Report Completed 10/28/2018 25162 Brief Emotional/Behav Assessment W/ Scoring Doc Per Completed Standard Inst 09/20/2018 [id number] Mammogram Completed 11/30/2014 [id number] Mammogram Completed Medical Devices Description No Information Available Encounters Type Date Location Provider Dx Diagnosis Office Visit 02/07/2019 Family Medicine Wilmer Choe MD Z23 Encounter for 11:30a [address] immunization F33.1 Major depressive disorder, recurrent, moderate M54.2 Cervicalgia Office Visit 01/14/2019 9:00a Primary Care oHlly Cruz M54.2 Cervicalgia Office H., PA F33.1 Major depressive disorder, recurrent, moderate R73.9 Hyperglycemia, unspecified Office Visit 11/15/2018 Primary Care Stephen Yan01.818 Encounter for other 11:30a Office MS Tiffanie, preprocedural HOSPITAL SECRETARY-C, CNM examination M54.2 Cervicalgia E28.2 Polycystic ovarian syndrome R73.9 Hyperglycemia, unspecified Office Visit 10/28/2018 10:20a Primary Care Brandi Sanchez MD M54.2 Cervicalgia Office F33.1 Major depressive disorder, recurrent, moderate Office Visit 09/14/2018 1:00p Primary Care Tiffanie Yan M54.2 Cervicalgia Office MS, HOSPITAL SECRETARY-C, CNM M79.601 Pain in right arm E66.8 Other obesity Assessments Date Code Description Provider 02/07/2019 Z23 Encounter for immunization Wilmer Choe MD 02/07/2019 F33.1 Major depressive disorder, Wilmer Choe MD recurrent, moderate 02/07/2019 M54.2 Cervicalgia iWlmer Choe MD 01/14/2019 M54.2 Cervicalgia Holly Cruz PA 01/14/2019 F33.1 Major depressive disorder, Holly Cruz PA recurrent, moderate 01/14/2019 R73.9 Hyperglycemia, unspecified Holly Cruz PA 12/08/2018 M54.2 Cervicalgia Brandi Sanchez MD 12/08/2018 F33.1 Major depressive disorder, Brandi Sanchez MD recurrent, moderate 11/15/2018 Z01.818 Encounter for other preprocedural HaydenTiffanie bishop, MS, HOSPITAL SECRETARY-C, examination CN 11/15/2018 M54.2 Cervicalgia HaydenTiffanie bishop, MS, HOSPITAL SECRETARY-C, CN 11/15/2018 E28.2 Polycystic ovarian syndrome HaydenTiffanie bishop, MS, HOSPITAL SECRETARY-C, [facility] 11/15/2018 R73.9 Hyperglycemia, unspecified HaydenTiffanie bishop, MS, HOSPITAL SECRETARY-Erik, [facility] 10/28/2018 M54.2 Cervicalgia Brandi Sanchez MD 10/28/2018 F33.1 Major depressive disorder, Brandi Sanchez MD recurrent, moderate 09/14/2018 M54.2 Cervicalgia HaydenTiffanie bishop, MS, HOSPITAL SECRETARYAsia, [facility] 09/14/2018 M79.601 Pain in right arm Tiffanie Yan MS, HOSPITAL SECRETARY-Erik, CN 09/14/2018 E66.8 Other obesity Tiffanie Yan, MS, HOSPITAL SECRETARY-Erik, [facility] Plan of Treatment No Information Available Functional Status Description No Information Available Mental Status Description No Information Available Referrals Description No Information Available
--- OUTSIDE RECORDS SUMMARY | 2019-02-15 09:18 | XMS REPORT | Continuity of Care Document ---
:1975 External Reference #:[id number] Author Name Holly Cruz PA Address [address] [place] [address] Care Team Providers Name Role Phone Venkata England MD - Endocrinology, Care Team Information Machinist Instructor Diabetes & Metabolism Brandi Sanchez MD - Internal Medicine Care Team Information Machinist Instructor [phone] [facility] Physical Therapy/Alejandro Barfield Care Team Information Machinist Instructor [phone] [facility] Care Team Information Machinist Instructor pc - Physical Therapy Patrice Chen MD - Obstetrics & Care Team Information Machinist Instructor Gynecology Problems Active Problems Provider Date Acute sinusitis Walter Mar M.D. Onset: 09/04/2016 Acute bronchitis Walter Mar M.D. Onset: 09/04/2016 Low back pain Walter Mar M.D. Onset: 09/04/2016 Gastroesophageal reflux disease Brandi [...] 03/16/2018 Polycystic ovary syndrome Tiffanie Yan, , [employer], Onset: 11/15/2018 CNM Moderate recurrent major depression Brandi Sanchez MD Onset: 12/08/2018 Social History Type Date Description Comments Sex Unknown Tobacco Use Start: Unknown End: Quit 1999 Unknown Tobacco Use Start: Unknown End: Former Cigarette Smoker X 6 YRS Unknown 1 Pack Daily Smoking Status Reviewed: 01/14/19 Former Cigarette Smoker X 6 YRS 1 [...] one every day 30tabs Brandi Sanchez, 11/24/2018 MD 325(65Fe) mg Tablets Vitamin D3 1 cap by mouth 100caps Brandi Sanchez, 10/28/2018 [id number] once a day. MD Capsules Fluoxetine HCL [...] Misty Allergy 1 tab by mouth 90tabs Brandi Sanchez, 11/11/2017 180mg every day as MD Tablets needed Metformin HCL take one tablet by 180tabs Brandi Sanchez, 11/11/2017 500mg mouth twice a day MD Tablets Proair HFA take 2 puffs every 8.500gm Brandi Sanchez, 6 hours as needed 108(90Base) mcg/Act for shortness of Aerosol breath. Omeprazole Take 1 Capsule By 90caps Brandi Sanchez, 40mg Mouth Every Day MD Capsules DR Topiramate take one tablet by Unknown 50mg mouth twice a day Tablets Aleve 2 by mouth every Unknown 220mg Capsules night if needed for pain Truecalm 1 capsule twice a Unknown day History Medications Gabapentin Take 1 Capsule 180Caps Tiffanie Yan, 08/24/2018 - 300mg By Mouth Twice A MS, [employer], CNM 10/28/2018 Capsules Day Gabapentin 1 by mouth twice 60caps Brandi Sanchez MD 07/29/2018 - 300mg a day 08/24/2018 Capsules Immunizations CPT Code Status Date Vaccine Lot # [id number] Given 06/23/2018 Influenza Virus Vaccine, Quadrivalent, 36 Mos+, [id number] Given 02/14/2016 Influenza Virus Vaccine Split Virus Use For Individual 3Yr Older [id number] Given 09/30/2011 Tdap injection Vital Signs Date Vital Result Comment 01/14/2019 9:00am BP Systolic Sitting Left Arm 130 mmHg BP Diastolic Sitting Left Arm 68 mmHg Body Temperature 97.1 F Heart Rate 69 /min Respiratory Rate 20 /min Height 69 inches 5'9" Weight 232.00 lb BMI (Body Mass Index) 34.3 kg/m2 BSA (Body Surface Area) 2.20 m2 [place] body weight in kilograms 66 kg O2 % BldC Oximetry 99 % 11/15/2018 11:15am BP Systolic Sitting Left Arm 126 mmHg BP Diastolic Sitting Left Arm 70 mmHg Body Temperature 98.2 F Heart Rate 64 /min Respiratory Rate 22 /min Height 69 inches 5'9" Weight 240.00 lb BMI (Body Mass Index) 35.4 kg/m2 BSA (Body Surface Area) 2.23 m2 [place] body weight in kilograms 66 kg O2 % BldC Oximetry 98 % ra Results Test Date Facility Test Result H/L Range Note Comprehensive 01/13/2019 [facility] Glucose 78 mg/dL Normal 74-106 1 Metabolic Panel [address] [place] [address] [phone] BUN 15 mg/dL Normal 7-18 Creatinine 0.7 [...] 62 U/L Normal 45-117 Laboratory test 01/13/2019 [facility] Vitamin 27.5 Low 30.0-100.0 [address] D,25-Hydroxy ng/mL [place], [place] [id number] [phone] LDL Cholesterol 01/13/2019 [facility] Cholesterol 152 <200 [address] mg/[place] [address] [phone] Triglycerides 55 mg/dL <150 6 HDL Cholesterol 49 mg/dL >40 7 LDL-Cholesterol 92 mg/dL < 100 8 Glycohemoglobin 01/13/2019 [facility] Glycohemoglobin 5.6 % Normal 4.2-6.[address] (A1c) [place] [address] [phone] eAG 114 mg/dL CBC W/Automated 01/13/2019 [facility] White Blood 10.0 K/uL Normal 3.1-10.[address] [place] [address] [phone] Red Blood Count 4.61 M/uL Normal 3.90-5.40 [...] 40.4-72.8 Lymph % 29.6 % Normal 20.0-42.0 [place] % 4.9 % Normal 4.3-13.2 Eo% 0.9 % Normal 0.0-6.6 Bas% 0.4 % Normal 0.0-1.1 Immature Grans 0.5 % Normal 0.0-5.0 NRBC % 0.0 /100WBC < 10/ 100 WBC Neut# 6.36 K/uL Normal 1.8-7.0 Lymph # 2.96 K/uL Normal 1.0-4.0 [place] # 0.49 K/uL Normal 0.3-0.9 Eos # 0.09 K/uL Normal 0.0-0.5 Baso # 0.04 K/uL Normal 0.0-0.1 Immature Grans Absolute 0.05 K/uL NRBC # 0.00 K/uL Basic Metabolic Panel 11/15/2018 [facility] Glucose 89 mg/dL Normal 74-[address] [place], [place] [address] [phone] BUN 11 mg/dL Normal 7-18 Creatinine 0.7 mg/dL Normal 0.6-1.3 Glom Filtration Rate, Estimate >60 mL/min >60 If >60 mL/min >60 11 BUN/Creat 15.7 ratio Sodium 142 mmol/L Normal 136-145 Potassium 3.9 mmol/L Normal 3.5-5.1 Chloride 111 mmol/L High 98-107 Carbon Dioxide 23 mmol/L Normal 21-32 Anion Gap 8 mEq/L Normal 8-16 Calcium 8.9 mg/dL Normal 8.5-10.1 Protime 11/15/2018 [facility] Protime 13.5 seconds Normal 12.0-14.[address] [place] [address] [phone] Inr 1.0 Normal 0.9-1.1 12 CBC W/Automated 11/15/2018 [facility] White Blood 9.8 K/uL Normal 3.1-10.[address] [place] [address] [phone] Red Blood Count 4.46 M/uL Normal 3.90-5.40 [...] 40.4-72.8 Lymph % 27.7 % Normal 20.0-42.0 [place] % 4.9 % Normal 4.3-13.2 Eo% 0.5 % Normal 0.0-6.6 Bas% 0.5 % Normal 0.0-1.1 Immature Grans 0.5 % Normal 0.0-5.0 NRBC % 0.0 /100WBC < 10/ 100 WBC Neut# 6.46 K/uL Normal 1.8-7.0 Lymph # 2.72 K/uL Normal 1.0-4.0 [place] # 0.48 K/uL Normal 0.3-0.9 Eos # 0.05 K/uL Normal 0.0-0.5 Baso # 0.05 K/uL Normal 0.0-0.1 Immature Grans Absolute 0.05 K/uL NRBC # 0.00 K/uL Ua RFX Micro & Culture 11/15/2018 [facility] Urine Color YELLOW Yellow II [address] [place], [place] [id number] [phone] Urine Clarity CLEAR Clear Urine Glucose - Dipstick NEGATIVE mg/dL Negative Urine Bilirubin - Dipstick NEGATIVE Negative Urine Ketone NEGATIVE mg/dL Negative Urine Specific Orient 1.015 Normal 1.010-1.030 Urine Blood NEGATIVE Negative Urine PH 7.0 Normal 6.5-7.5 Urine Protein - Dipstick NEGATIVE mg/dL Negative Urine Urobilinogen - Dipstick 0.2 E.U./dL Normal 0.2-1.0 Urine Nitrite - Dipstick NEGATIVE Negative Urine Leuk Esterase NEGATIVE Negative Source: URINE, CLEAN CAT <SEE NOTE> 13 Laboratory test 11/15/2018 [facility] Act Partial 25.9 Normal 23.4-35.0 finding [address] [place] [address] Time [phone] 1 R73.9 K76.0 E55.9 K76.0 E78.5 D64.9 [...] D deficiency has been defined by the [place] of Medicine and an Endocrine Society practice guideline as a level of serum 25-OH vitamin D less than 20 ng/mL (1,2). The Endocrine Society went on to further define vitamin D insufficiency as a level between 21 and 29 ng/mL (2). 1. IOM ([place] of [employer]). 2010. Dietary reference intakes for calcium and D. [place]: The National Academies Press. 2. Zeynep MF, Isabella NC, Amarilis GASPAR, et al. Evaluation, treatment, and prevention of vitamin D deficiency: an Endocrine Society clinical practice guideline. JCEM. 2010; 96(7):1911-30. Performed at: RN - [facility] [address] [id number] E Tailer: Shannan Bustillos MD, Phone: [phone] Reference Guidelines*: Desirable: ........... < 200 [...] for more aggressive treatment of glycemia. The [place] Diabetes Association recommends that a primary goal [...] CATCH Procedures Date Code Description Status 11/15/2018 11187 EKG-Tracing And Report Completed 10/28/2018 85038 Brief Emotional/Behav Assessment W/ Scoring Doc Per Completed Standard Inst 09/20/2018 [id number] Mammogram Completed 11/30/2014 [id number] Mammogram Completed Medical Devices Description No Information Available Encounters Type Date Location Provider Dx Diagnosis Office Visit 01/14/2019 Primary Care Office Holly Cruz M54.2 Cervicalgia 9:00a ALEKSANDRA Dietz F33.1 Major depressive disorder, recurrent, moderate R73.9 Hyperglycemia, unspecified Office Visit 11/15/2018 Primary Care Stephen Yan01.818 Encounter for other 11:30a Office MS Tiffanie, preprocedural [employer], CNM examination M54.2 Cervicalgia E28.2 Polycystic ovarian syndrome R73.9 Hyperglycemia, unspecified Office Visit 10/28/2018 10:20a Primary Care Brandi Sanchez MD M54.2 Cervicalgia Office F33.1 Major depressive disorder, recurrent, moderate Office Visit 09/14/2018 1:00p Primary Care Tiffanie Yan M54.2 Cervicalgia Office MS, [employer], CNM M79.601 Pain in right arm E66.8 Other obesity Office Visit 07/21/2018 10:20a Primary Care Brandi Sanchez MD M54.2 Cervicalgia Office Assessments Date Code Description Provider 01/14/2019 M54.2 Cervicalgia Holly Cruz PA 01/14/2019 F33.1 Major depressive disorder, Holly Cruz PA recurrent, moderate 01/14/2019 R73.9 Hyperglycemia, unspecified Holly Cruz PA 12/08/2018 M54.2 Cervicalgia Brandi Sanchez MD 12/08/2018 F33.1 Major depressive disorder, Brandi Sanchez MD recurrent, moderate 11/15/2018 Z01.818 Encounter for other preprocedural Tiffanie Yan MS, [employer], examination CN 11/15/2018 M54.2 Cervicalgia Tiffanie Yan MS, [employer], CNM 11/15/2018 E28.2 Polycystic ovarian syndrome Tiffanie Yan MS, [employer], CNM 11/15/2018 R73.9 Hyperglycemia, unspecified Tiffanie Yan, , [employer], [facility] 10/28/2018 M54.2 Cervicalgia Brandi Sanchez MD 10/28/2018 F33.1 Major depressive disorder, Brandi Sanchez MD recurrent, moderate 09/14/2018 M54.2 Cervicalgia Tiffanie Yan MS, [employer], [facility] 09/14/2018 M79.601 Pain in right arm Tiffanie Yan MS, [employer], [facility] 09/14/2018 E66.8 Other obesity Tiffanie Yan MS, [employer], [facility] 07/21/2018 M54.2 Cervicalgia Brandi Sanchez MD Plan of Treatment 01/14/2019 - Holly Cruz, PAM54.2 CervicalgiaComments:Advised pt that I would NOT be willing to Rx pain medications for her sx. Discussed that the pain she is experiencing is probably helping prevent her from doing too much. If she is given meds to decrease pain, she is likely to hurt [id number] Major depressive disorder, recurrent, moderateNew Labs:Thyroid Stim Hormone, Scheduled : 07/15/19CBC W/Automated Diff, Scheduled: 07/15/19Comments:Symptoms assoc with marital stressors. Pt is doing counselling, encouraged marital counselling as well.Discussed options with med change, possibly to Cymbalta to help with pain, but do not want to riskworsening of sx with med change.R73.9 Hyperglycemia, unspecifiedNew Labs:LDL Cholesterol Profile, Scheduled: 07/15/19Comprehensive Metabolic Panel, Scheduled: 07/15/19Glycohemoglobin A1c, Scheduled: Comments:Doing well. HgbA1c is controlled.Encouraged diet, exercise and weight lossFollow up:Follow-up 6 months with PCP- fasting labs 1 week prior Functional Status Description No Information Available Mental Status Description No Information Available Referrals Description No Information Available
[2019-02-15 09:27] VITALS: BP 127/59
--- NOTE | 2019-02-15 09:45 | UC ---
Abdominal Pain Female HPI - HPI Summary HPI Summary: Patient presents to urgent care for evaluation of vaginal symptoms. Patient states for the last 10 days she's had progressive dysuria frequency and burning with urination. Patient states she's also had some inflammation and edema of her labia as well as some clear discharge. Patient states she was concerned initially she had BV for the last 2-3 weeks but now she is concerned she has a UTI. Patient states she had her partner have been having increase intercourse and states she thinks this is contributed. Patient's last EBV was approximately 9 months ago. Patient states she had appointment today with Dr. cochran. Patient said she was driving his esophageal phone call they would have to reschedule she came here. Patient states she is not . Medications reviewed this visit. - History of Current Complaint Chief Complaint: UCGU Stated Complaint: UTI Time Seen by Provider: 02/15/19 09:35 Hx Obtained From: Patient Hx Last Menstrual Period: 02/09/19 Onset/Duration: Gradual Onset Severity Initially: Moderate Severity Currently: Moderate Pain Intensity: 7 Allergies/Adverse Reactions: Allergies Allergy/AdvReac Type Severity Reaction Status Date / Time cefaclor Allergy Vomiting Verified 02/15/19 09:27 Home Medications: Home Medications Fluoxetine HCl [Fluoxetine Hydrochloride] 60 mg PO DAILY 02/15/19 [History Confirmed 02/15/19] Naproxen Sodium [Aleve] 2 tab PO BID 02/15/19 [History Confirmed 02/15/19] PMH/Surg Hx/FS Hx/Imm Hx Previously Healthy: Yes - Surgical History Surgical History: Yes Surgery Procedure, Year, and Place: C4-C6 fusion and birdcage 2019 - Family History Known Family History: Positive: Non-Contributory - Social History Occupation: Disabled Lives: With Family Alcohol Use: None Substance Use Type: None Smoking Status (MU): Never Smoked Tobacco Length of Time of Smoking/Using Tobacco: 2 yrs Review of Systems All Other Systems Reviewed And Are Negative: Yes Constitutional: Positive: Negative Skin: Positive: Negative - He Genitourinary: Positive: Dysuria, Hematuria, Vaginal/Penile Discharge Is Patient Immunocompromised?: No Physical Exam - Summary Physical Exam Summary: Vital Signs Reviewed: Yes A+Ox3, no distress Eyes: Conjunctiva Clear, CONNOR. EOM intact and full ENT: Hearing grossly normal TM x 2 clear, mmoist, uvula midline, no exudate, no erythema Neck: Positive: Supple Respiratory: Positive: No respiratory distress, No accessory muscle use + CTA throughout no w/r Cardiovascular: RRR nl s1, s2 no m/r CBT <2 sec abd soft + BS nt/nd no guarding, no distension, no CVA vaginal exam: HUGH Chaidez at bedside: no lesioins, Pt with edema of labia majora , pt with thin, white discharge in vault - no bleeding, no tenderness, no odor, no findings consistent with vaginal yeast Musculoskeletal Exam: BRYAN x 4 without difficulty Strength Intact, ROM Intact Neurological: Positive: Alert, + sensation throughout Psychological: Positive: Normal Response To examiner Skin: Positive: no rash, no ecchymosis Triage Information Reviewed: Yes Vital Signs: Initial Vital Signs Temp 97.8 F 02/15/19 09:20 Pulse 65 02/15/19 09:20 Resp 16 02/15/19 09:20 BP 127/59 02/15/19 09:20 Pulse Ox 98 02/15/19 09:20 Abd Pain Female Course/Dx - Course Course Of Treatment: Patient presents to urgent care for evaluation of erythema vaginal discharge as well as dysuria and hematuria. Patient states she's had been in the past and thinks is what she has. Patient states has been ongoing for about few weeks. Patient is less today she's had progressive dysuria frequency and urgency. Patient states he gets lower abdominal spasms with urination. On exam vital signs are stable. Patient's urine does show blood as well as 3+ leuk esterase. Patient is asthmatic. Patient's vaginal exam consistent with BV. A firm culture taken. Discussed with patient treatment options. We'll treat for both UTI as well as BV. Patient aware cultures may take 2-3 days and she'll receive a call if there is an alteration treatment. Strict return precautions discussed. Patient also advised to avoid alcohol 48 hours before and after Flagyl. Patient states understanding. Patient in agreement - Differential Dx/Diagnosis Provider Diagnosis: Dysuria, Vaginitis Discharge ED - Sign-Out/Discharge Documenting (check all that apply): Patient Departure All imaging exams completed and their final reports reviewed: No Studies - Discharge Plan Condition: Stable Disposition: HOME Prescriptions: metroNIDAZOLE [Flagyl] 500 mg PO BID #14 tablet Nitrofurantoin Monohyd/M-Cryst [Macrobid 100 mg Capsule] 100 mg PO BID #14 cap Phenazopyridine TAB* [Pyridium 100 mg TAB*] 100 mg PO TID PRN #9 tab PRN Reason: burning with urination Patient Education Materials: Vaginitis (ED), Dysuria (ED) Referrals: Brandi Sanchez MD [Primary Care Provider] - Additional Instructions: - Take antibiotics and flagyl as prescribed. Do NOT drink alcohol 48 hours before or 48 hours after taking flagyl as it will cause vomiting - - stay well hydrated - drink plenty of non-alcoholic, non caffinated beverages - your urine will be further tested - if you require any changes to your treatment, we will contact you - this usually take 2 days - Contact your primary doctor to arrange a follow-up appointment next week. Contact your doctor or return with questions or concerns - Take pyridium as prescribed for discomfort. This will make your urine blaze orange - this is normal - Okay to alternate ibuprofen (Advil, Motrin) and Tylenol every 3 hours for pain. Take with food - It is recommended you use A+D ointment or vasoline as a barrier to protect your labia from burning Your urine and samples have been sent for additional testing - if you need a change in treatmetn, you will receive a call from a care marine steam fitter helper - Call your doctor or return with questions or concerns - Billing Disposition and Condition Condition: STABLE Disposition: Home
--- NOTE | 2019-02-17 08:19 | UC ---
- Progress Note Progress Note: Preliminary urine culture from February 06, 2019 comes back as Klebsiella pneumonia and strep group B. Patient started on Macrobid. Nursing to call patient if patient is improving we'll continue the same treatment. However the patient is worse need to add an additional antibiotic. Patient has an allergy to cephalosporin. If any start no antibiotic will need to know if the patient can tolerate amoxicillin. Course/Dx - Diagnoses Provider Diagnoses: Dysuria, Vaginitis Discharge ED - Sign-Out/Discharge Documenting (check all that apply): Patient Departure All imaging exams completed and their final reports reviewed: No Studies - Discharge Plan Condition: Stable Disposition: HOME Prescriptions: metroNIDAZOLE [Flagyl] 500 mg PO BID #14 tablet Nitrofurantoin Monohyd/M-Cryst [Macrobid 100 mg Capsule] 100 mg PO BID #14 cap Phenazopyridine TAB* [Pyridium 100 mg TAB*] 100 mg PO TID PRN #9 tab PRN Reason: burning with urination Patient Education Materials: Vaginitis (ED), Dysuria (ED) Referrals: Brandi Sanchez MD [Primary Care Provider] - Additional Instructions: - Take antibiotics and flagyl as prescribed. Do NOT drink alcohol 48 hours before or 48 hours after taking flagyl as it will cause vomiting - - stay well hydrated - drink plenty of non-alcoholic, non caffinated beverages - your urine will be further tested - if you require any changes to your treatment, we will contact you - this usually take 2 days - Contact your primary doctor to arrange a follow-up appointment next week. Contact your doctor or return with questions or concerns - Take pyridium as prescribed for discomfort. This will make your urine blaze orange - this is normal - Okay to alternate ibuprofen (Advil, Motrin) and Tylenol every 3 hours for pain. Take with food - It is recommended you use A+D ointment or vasoline as a barrier to protect your labia from burning Your urine and samples have been sent for additional testing - if you need a change in treatmetn, you will receive a call from a care operations team leader - Call your doctor or return with questions or concerns - Billing Disposition and Condition Condition: STABLE Disposition: Home
--- NOTE | 2019-02-18 07:55 | ED ---
Progress - Progress Note Progress Note: Call patient; if she is feeling a lot better and symptoms resolving, no further treatment. If she is still having dysuria, I will send in a different script for the urine. Course/Dx - Diagnoses Provider Diagnoses: Dysuria, Vaginitis Discharge ED - Sign-Out/Discharge Documenting (check all that apply): Patient Departure All imaging exams completed and their final reports reviewed: No Studies - Discharge Plan Condition: Stable Disposition: HOME Prescriptions: metroNIDAZOLE [Flagyl] 500 mg PO BID #14 tablet Nitrofurantoin Monohyd/M-Cryst [Macrobid 100 mg Capsule] 100 mg PO BID #14 cap Phenazopyridine TAB* [Pyridium 100 mg TAB*] 100 mg PO TID PRN #9 tab PRN Reason: burning with urination Patient Education Materials: Vaginitis (ED), Dysuria (ED) Referrals: Brandi Sanchez MD [Primary Care Provider] - Additional Instructions: - Take antibiotics and flagyl as prescribed. Do NOT drink alcohol 48 hours before or 48 hours after taking flagyl as it will cause vomiting - - stay well hydrated - drink plenty of non-alcoholic, non caffinated beverages - your urine will be further tested - if you require any changes to your treatment, we will contact you - this usually take 2 days - Contact your primary doctor to arrange a follow-up appointment next week. Contact your doctor or return with questions or concerns - Take pyridium as prescribed for discomfort. This will make your urine blaze orange - this is normal - Okay to alternate ibuprofen (Advil, Motrin) and Tylenol every 3 hours for pain. Take with food - It is recommended you use A+D ointment or vasoline as a barrier to protect your labia from burning Your urine and samples have been sent for additional testing - if you need a change in treatmetn, you will receive a call from a care operations team leader - Call your doctor or return with questions or concerns - Billing Disposition and Condition Condition: STABLE Disposition: Home
== END 2019-02-15 10:31 | disposition home or self-care (01) ==
LOC: UCCORT 09:04
DX: N76.0 Acute vaginitis (principal); R30.0 Dysuria; R31.9 Hematuria, unspecified; R35.0 Frequency of micturition; R82.998 Other abnormal findings in urine; Z88.1 Allergy status to other antibiotic agents
CPT/HCPCS: 81003; 87077; 87086; 87186; 87480; 87510; 87660; 99212; G0463